=== PATIENT | male | born 2000 | race Caucasian/White ===

== ENCOUNTER → 2018-04-26 | Emergency (ER) | payer SELFPAY ==
[~2018-04-26] VITALS: Ht 185.4 cm; Wt 77.1 kg
[~2018-04-26] MED LIST: AUGMENTIN 875-1 EAC1 ORAL; TYLENOL EXTRA500 MG ORAL
[2018-04-26 13:58] VITALS: BP 99/68
--- NOTE | 2018-04-26 13:59 | NUR ---
ED Nurse Note: pt walked into ED c/o sorethroat since yesterday along with headache, denies other complaints. noted left side swollen tonsil. Pt AA&ox4, gcs=15, skin warm and dry, resp even and unlabored, -n/v/d, ambulates w/ steady gait. will continue to monitor.
--- NOTE | 2018-04-26 14:10 | Emergency Room Report ---
History of Present Illness General Chief Complaint: Sore Throat Source: Patient Present Illness HPI 17-year-old male presents to the emergency department complaining of 8 out of 10 severity sore throat 3 days with subjective fevers and chills. Patient reports his tonsils are extremely swollen and this is rare for him. Patient denies ill contacts or recent travel. Patient denies cough, neck pain/stiffness , Denies ear pain, high fevers, lethargy, neck pain/stiffness, irritability, photophobia dehydration, N/V/D. Denies Cp, Palpitations, LOC, AMS, seizures, paresthesias, or changes in Hearing or vision, no Sudden severe REDMOND. Denies hx of smoking, asthma or COPD. Allergies: Coded Allergies: No Known Allergies (Unverified , 04/26/18) Patient History Past Medical History: see triage record Past Surgical History: none Pertinent Family History: none Reviewed Nursing Documentation: PMH: Agreed; PSxH: Agreed Nursing Documentation-PMH Past Medical History: No Stated History Review of Systems All Other Systems: negative except mentioned in HPI Physical Exam Vital Signs Date Time Temp Pulse Resp B/P (MAP) Pulse Ox O2 Delivery O2 Flow Rate FiO2 04/26/18 13:44 97.9 94 20 99/68 98 Room Air Sp02 EP Interpretation: reviewed, normal General Appearance: no apparent distress, alert, GCS 15, non-toxic Head: normocephalic, atraumatic Eyes: bilateral eye normal inspection, bilateral eye PERRL ENT: hearing grossly normal, normal voice, tonsillar swelling, pharyngeal erythema, tonsillar exudate Neck: full range of motion Respiratory: lungs clear, normal breath sounds, no wheezing, speaking full sentences Cardiovascular #1: regular rate, rhythm, no edema Musculoskeletal: back normal, gait/station normal, normal range of motion, non- tender Neurologic: alert, oriented x3, responsive, motor strength/tone normal, sensory intact, speech normal, grossly normal Psychiatric: judgement/insight normal Skin: normal color, no rash, warm/dry, well hydrated Lymphatic: no adenopathy Medical Decision Making PA Attestation Dr. gilliam is my supervising Physician whom patient management has been discussed with. Diagnostic Impression: Primary Impression: Acute bacterial tonsillitis ER Course 17-year-old male presents to the emergency department complaining of 8 out of 10 severity sore throat 3 days with subjective fevers and chills. Patient reports his tonsils are extremely swollen and this is rare for him. Patient denies ill contacts or recent travel. Patient denies cough, neck pain/stiffness , Denies ear pain, high fevers, lethargy, neck pain/stiffness, irritability, photophobia dehydration, N/V/D. Denies Cp, Palpitations, LOC, AMS, seizures, paresthesias, or changes in Hearing or vision, no Sudden severe REDMOND. Denies hx of smoking, asthma or COPD. Ddx considered but are not limited to: pharyngitis, strep, [employer], ludwigs angina, URI Vital signs: are WNL, pt. is afebrile H&PE are most consistent with: pharyngitis presumed strep. ORDERS: None required at this time as the diagnosis is clinical ED INTERVENTIONS: none required at this time. DISCHARGE: At this time pt. is stable for d/c to home. Will provide printed patient care instructions, and any necessary prescriptions. Care plan and follow up instructions have been discussed with the patient prior to discharge. Last Vital Signs Date Time Temp Pulse Resp B/P (MAP) Pulse Ox O2 Delivery O2 Flow Rate FiO2 04/26/18 13:58 97.9 68 20 99/68 98 Room Air Disposition: HOME, SELF-CARE Condition: Stable Scripts Acetaminophen* (TYLENOL EXTRA STRENGTH*) 500 Mg Tablet 500 MG ORAL Q6H, #20 TAB 0 Refills Prov: Columba Crawford 04/26/18 Amoxicillin/Potassium Clav 875-125* (AUGMENTIN 875-125 TABLET*) 1 Each Tablet 1 TAB ORAL TWICE A DAY for 10 Days, #20 TAB Prov: Columba Crawford 04/26/18 Patient Instructions: Tonsillitis Additional Instructions: Take medications as directed. Follow up with a Primary Care Provider in 3-5 days, even if your symptoms have resolved. --Please review list of primary care clinics, if you do not already have a primary care provider Return sooner to ED if new symptoms occur, or current symptoms become worse. - Please note that this Emergency Department Report was dictated using [employer] painter technology software, occasionally this can lead to erroneous entry secondary to interpretation by the dictation equipment. Columba Crawford Apr 26, 2018 14:10
[2018-04-26 14:24] VITALS: BP 128/68
--- NOTE | 2018-04-26 14:24 | NUR ---
ED Nurse Note: pt discharge instruction provided w/ prescription, pt education done, id band removed, pt verbalized understanding and agrees with plan.
== END | disposition home or self-care (01) ==
LOC: EMR 14:15
DX: J03.90 Acute tonsillitis, unspecified (principal); A49.9 Bacterial infection, unspecified
CPT/HCPCS: 99283